=== PATIENT | male | born 1975 | race Caucasian/White ===

== ENCOUNTER 2018-03-02 04:57 | Emergency (ER) | payer BC ==
[2018-03-02] MEDS ORDERED: NS 0.9% 1000 ML* 1,000 ML IV ONE (05:24)
[2018-03-02] MEDS ORDERED: Ketorolac INJ* 30 MG/ML 1 ML VIAL IV PUSH ONE (05:25)
--- NOTE | 2018-03-02 05:29 | ED ---
Abdominal Pain/Male - HPI Summary HPI Summary: 43 year old M presenting to [facility] accompanied by complains of left flank pain described as stabbing since 04:00 today. The patient rates the pain 8/10 in severity initially but 4/10 in severity currently. Symptoms aggravated by nothing. Symptoms alleviated by nothing. Patient denies vomiting, fever, and chills. - History of Current Complaint Chief Complaint: EDFlankPain Stated Complaint: FLANK PAIN Time Seen by Provider: 03/02/18 05:17 Hx Obtained From: Patient Onset/Duration: Lasting Hours - 0400 today, Still Present Timing: Constant Severity Initially: Severe - 8/10 Severity Currently: Moderate Pain Intensity: 4 Pain Scale Used: 0-10 Numeric Location: Flank - left Character: Other: - stabbing Aggravating Factor(s): Nothing Alleviating Factor(s): Nothing Associated Signs And Symptoms: Positive: Negative - vomiting, fever, and chills - Allergies/Home Medications Allergies/Adverse Reactions: Allergies Allergy/AdvReac Type Severity Reaction Status Date / Time No Known Allergies Allergy Verified 03/02/18 05:00 PMH/Surg Hx/FS Hx/Imm Hx Previously Healthy: No Endocrine/Hematology History: Denies: Hx Diabetes Cardiovascular History: Denies: Hx Hypertension, Hx Pacemaker/ICD History: Denies: Hx Renal Disease Sensory History: Denies: Hx Hearing Aid Psychiatric History: Denies: Hx Panic Disorder - Surgical History Surgery Procedure, Year, and Place: LEFT INDEX FINGER-REATTACHED NERVE Infectious Disease History: No Infectious Disease History: Denies: Traveled Outside the [place] in Last 30 Days - Family History Known Family History: Negative: Blood Disorder - Social History Alcohol Use: None Hx Substance Use: No Substance Use Type: Reports: None Review of Systems Negative: Fever, Chills Negative: Vomiting Positive: flank pain - left All Other Systems Reviewed And Are Negative: Yes Physical Exam - Summary Physical Exam Summary: Appearance: Well-appearing, Well-nourished, lying in bed comfortably Skin: Warm, dry, no obvious rash Eyes: sclera anicteric, no conjunctival pallor ENT: mucous membranes moist, pharynx appears normal Neck: Supple, nontender Respiratory: Clear to auscultation, no signs of respiratory distress Cardiovascular: Normal S1, S2. No murmurs. Normal distal pulses in tibial and radial bilaterally. Abdomen: Soft, nontender, normal active bowel sounds present Musculoskeletal: Normal, Strength/ROM Intact Neurological: A&Ox3, awake and alert, mentation is normal, speech is fluent and appropriate Psychiatric: affect is normal, does not appear anxious or depressed Triage Information Reviewed: Yes Vital Signs On Initial Exam: Initial Vitals Temp Pulse Resp BP Pulse Ox 97.4 F 83 16 137/91 95 03/02/18 04:58 03/02/18 04:58 03/02/18 04:58 03/02/18 04:58 03/02/18 04:58 Vital Signs Reviewed: Yes Diagnostics - Vital Signs Vital Signs Temp Pulse Resp BP Pulse Ox 03/02/18 04:58 97.4 F 83 16 137/91 95 - Laboratory Result Diagrams: 03/02/18 06:00 Lab Statement: Any lab studies that have been ordered have been reviewed, and results considered in the medical decision making process. Abdominal Pain Fem Course/Dx - Course Course Of Treatment: 43 year old M presenting to [facility] accompanied by complains of left flank pain since 04:00 today. In ED course, patient was given Toradol and IV fluids. Bloodwork unremarkable. Patient will be signed out to Dr. Flanagan, awaiting UA and CT Abd/Pel, pending disposition. - Diagnoses Provider Diagnoses: Flank pain, Renal colic on left side Discharge - Sign-Out/Discharge Documenting (check all that apply): Sign-Out Patient Signing out patient TO: Harshal Flanagan - awaiting UA and CT Abd/Pel, pending disposition. - Discharge Plan Referrals: Lenin Ward, INSERT OPERATOR [Primary Care Provider] - - Attestation Statements Document Initiated by Scribe: Yes Documenting Scribe: Renu Lora Provider For Whom Patrickibe is Documenting (Include Credential): Loc Desai MD Scribe Attestation: Renu Sheikh, scribed for Loc Desai MD on 03/02/18 at 0647. Status of Scribe Document: Ready
[2018-03-02 06:24] LABS: ABS Basophils 0 10^3/ul (0-0.2); ABS Eosinophils 0.1 10^3/ul (0-0.6); ABS Monocytes 0.8 10^3/ul (0-0.8); ABS Neutrophils 3.5 10^3/ul (1.5-7.7); ABS Nucleated RBC 0 10^3/ul; Eosinophil % 1.3 %; Hematocrit 40 % (42-52); Hemoglobin 14.1 g/dl (14.0-18.0); Lymphocyte % 31.2 %; Mean Corpuscular HGB Conc 35 g/dl (31-36); Mean Corpuscular Hemoglobin 31 pg (27-31); Mean Corpuscular Volume 88 fL (80-94); Nucleated Red Blood Cells % 0.1; Platelet Count 253 10^3/ul (150-450); Red Blood Count 4.54 10^6/ul (4.00-5.40); Red Cell Distribution Width 13 % (10.5-15); White Blood Count 6.4 10^3/ul (3.5-10.8)
[2018-03-02 06:50] LABS: EGFR Non-African American 106.6 (>60)
--- NOTE | 2018-03-02 07:11 | ED ---
Progress - Progress Note Progress Note: CT Abd/Pel reveals, per radiologist, IMPRESSION: 1. No renal or ureteral calculi are evident and there is no evidence of obstructive uropathy. There is a 2 mm calculus in the right posterior aspect of the urinary bladder which may reflect a recently passed stone. 2. Asymmetrically large right seminal vesicle uncertain etiology. 3. Otherwise negative CT abdomen/pelvis. ED physician has reviewed this radiology report. Course/Dx - Course Course Of Treatment: 43 year old M presenting to [facility] accompanied by complains of left flank pain since 04:00 today. In ED course, patient was given Toradol and IV fluids. Bloodwork unremarkable. Patient is feeling better and will be discharged with a dx of kidney stones. Patient is agreeable with this plan. - Diagnoses Provider Diagnoses: Flank pain, Renal colic on left side, Kidney stones Discharge - Sign-Out/Discharge Documenting (check all that apply): Patient Departure, Receiving Sign-Out Receiving patient FROM: Loc Desai - Discharge Plan Condition: Stable Disposition: HOME Patient Education Materials: Kidney Stones (ED) Referrals: Lenin Ward, CAFE AIDE [Primary Care Provider] - - Attestation Statements Document Initiated by Scribe: Yes Documenting Scribe: Anel Cueva Provider For Whom Scribe is Documenting (Include Credential): Harshal Flanagan MD Scribe Attestation: Anel Sheikh scribed for Harshal Flanagan MD on 03/02/18 at 0711. Status of Scribe Document: Ready
[2018-03-02 07:35] VITALS: BP 134/82
[2018-03-02 07:52] LABS: Urine Appearance Clear; Urine Blood 3+ (Negative); Urine Color Yellow; Urine Ketones Negative (Negative); Urine Protein Negative (Negative); Urine Red Blood Cell 3+(>10/hpf) (Absent); Urine Urobilinogen Negative (Negative); Urine White Blood Cell Absent (Absent)
== END 2018-03-02 07:25 | disposition home or self-care (01) ==
LOC: ED 04:57
DX: R10.84 Generalized abdominal pain (principal); N20.0 Calculus of kidney; N23 Unspecified renal colic
CPT/HCPCS: 36415; 74176; 80053; 81003; 81015; 85025; 96361; 96374; 99283; J1885